=== PATIENT | male | born 1990 | race Caucasian/White ===

== ENCOUNTER 2025-03-17 08:46 | Outpatient (CLI) | payer BC, SELFPAY | END 2025-03-17 08:47 | disposition home or self-care (01) | PROVIDERS: Visit Provider Family Medicine | DX: Z13.6 Encounter for screening for cardiovascular disorders (principal); F32.A Depression, unspecified; F41.9 Anxiety disorder, unspecified; R53.83 Other fatigue | CPT/HCPCS: 80053; 80061; 84443 ==